=== PATIENT | female | born 1940 | race Caucasian/White ===

== ENCOUNTER 2025-06-12 05:00 | Inpatient (IN) ==
--- NOTE | 2025-06-12 05:34 | Emergency Department Note ---
Impression & Plan Headache, Acute CVA (cerebrovascular accident) ED Provider Note ED Provider Note NAME: MAURISIO DAI AGE:84 SEX: Female : 1940 ARRIVES VIA: Private vehicle INFORMANT: Patient ED PROVIDER(s): Tess Tripp DO CHIEF COMPLAINT: headache HPI: This is an 84-year-old female who presents emergency department due to concern for 5 days of headache. Patient's family members at bedside help with translation as patient is primarily Angolan-speaking. Patient has no history of headaches. No recent trauma or change in activity. No recent change in medications. Patient does take several medications for blood pressure but states she has been checking her blood pressure at home and it has been well- controlled. She is taking her medications as prescribed. She feels she has been staying well-hydrated. She has noted accompanying nausea and blurred vision. No neck or back pain, no paresthesias, no light sensitivity or noise sensitivity. Patient has not noticed any change in her pain with certain positions. She has been using Tylenol and Advil at home with only minimal improvement of her symptoms. She states the pain has been constant and points to the right temporoparietal region of her head. No recent URI symptoms or allergies. She denies any recent fevers or chills. PAST MEDICAL HISTORY:See Below PAST SURGICAL HISTORY:See Below FAMILY HISTORY:See Below SOCIAL HISTORY:See Below HOME MEDICATIONS:See Below ALLERGIES:See Below VITALS:See Below PHYSICAL EXAMINATION: GENERAL: alert, well appearing, well nourished, no distress, non-toxic HEAD: nc/at, pain with palpation along the right temporoparietal region, no palpable mass of the right yarsanism EYE EXAM: normal conjunctiva, PERRL and EOM's grossly intact EARS: TM's clear b/l without erythema or effusion OROPHARYNX: no exudate, no erythema, lips, buccal mucosa, and tongue normal and mucous membranes are moist NECK: supple, no nuchal rigidity, no adenopathy, non-tender, FROM LUNGS: Clear to auscultation. Normal chest wall mechanics, no w/r/r HEART: no murmurs, S1 normal and S2 normal ABDOMEN: abdomen soft, non-tender, normo-active bowel sounds, no masses, no rebound or guarding. BACK: Back is symmetrical on inspection and there is no deformity SKIN: no rashes, petechiae, orbruising UPPER EXTREMITIES: upper extremities are grossly normal. FROM, nml pulses b/l. LOWER EXTREMITIES: No pitting edema. FROM, nml pulses b/l. NEURO EXAM: Normal sensorium, cranial nerves II-XII grossly intact, normal speech, no facial droop,nogross weakness of arms, no gross weakness of legs. Gross sensation intact. No ataxia. Vital Signs: reviewed and remarkable Differential Diagnosis: Differential Diagnosis includes but is not limited to headache, tension headache, cluster headache, migraine, subarachnoid hemorrhage, meningitis, mass, central venous thrombus, concussion, trauma and epidural/subdural hemorrhage. MEDICAL DECISION MAKING: This is an 84 yo female who presents to the ER with concern for 5 days of a headache. No prior history. No recent trauma or illness. She was afebrile and VS stable. No other neuro deficits. Labs drawn and sent, IV established, EKG performed and interpreted at bedside, and patient placed on telemetry. Patient started on IVF and given IV tylenol, IV zofran, and IV magnesium. She was sent for CT/CTA which revealed an occipital lobe stroke. Patient takes 81 mg ASA daily. Patient and family updated on results and need for further evaluation. Case discussed with hospitalist for further evaluation and mgmt. Consultation(s): 0740: Discussed with Dr. Pierce, [facility] hospitalist team, for further evaluation and mgmt. ER Treatment Provided: See below Diagnostics Interpreted By Me: -ECG: Normal sinus at 69, normal axis, normal intervals, no acute ST/T wave changes -Cardiac Monitoring: An order was placed for continuous cardiac monitoring. The monitor shows a rate of 64 with normal sinus rhythm. -Laboratory studies: As stated above and show below. -Imaging studies: CT head: occipital cva, no ICH Triage Nursing Note Reviewed Prior/Outside Records Reviewed Past Med/Surg History Problem List (Updated 06/14/25 @ 02:02 by Tess Tripp DO) Acute CVA (cerebrovascular accident) (Acute) Palpitations Lyme disease Multiple thyroid nodules Occipital stroke Headache (Acute) Medical History (Updated 06/14/25 @ 02:02 by Tess Tripp DO) Atypical chest pain Prediabetes Hyperlipidemia Hypertension Hyperkalemia Surgical History (Updated 06/12/25 @ 08:21 by KIERAN Yanes) History of appendectomy History of hysteroscopy Social History (Updated 06/12/25 @ 10:13 by KIERAN Yanes) Smoking Status: Never smoker Do You Dip or Chew Tobacco: No; Hx Alcohol Use: No Hx Substance Use: No Preferred Language: Angolan Communication Ability: Effective Communication Tools: [employer]isher Required: Yes Beliefs That Will Affect Care: None Current Living Situation: Family Feels Safe at Home: Yes Safety Concerns: Feels Safe At This Time Assistive Devices: Denture - Lower Allergies Allergies Allergy/AdvReac Type Severity Reaction Status Date / Time No Known Allergies Allergy Verified 04/21/23 15:12 Home Meds Home Medications Medication Instructions Recorded Confirmed aspirin 81 mg chewable tablet 81 mg PO DAILY 06/12/25 06/12/25 bisoprolol fumarate 5 mg tablet 5 mg PO DAILY 06/12/25 06/12/25 clonidine HCl 0.2 mg tablet 0.1 mg PO BID 06/12/25 06/12/25 isosorbide mononitrate 30 mg 30 mg PO DAILY 06/12/25 06/12/25 tablet,extended release 24 hr rosuvastatin 10 mg tablet 10 mg PO DAILY 06/12/25 06/12/25 spironolactone 25 mg tablet 25 mg PO DAILY 06/12/25 06/12/25 Results & Data (ED) Vital Signs Vital Signs - 24 hr 06/12/25 05:05 06/12/25 05:39 06/12/25 06:06 Temperature 36.7 C Temperature Source Temporal Artery Scan Pulse Rate 73 67 62 Respiratory Rate 18 18 Respiratory Effort / Characteristics Non-Labored Spontaneous Respiratory Depth Normal Respiratory Pattern Regular Blood Pressure 173/78 H 146/105 H Blood Pressure Mean 109 114 Pulse Oximetry 95 95 Oxygen Delivery Method Room Air Sepsis Recent Fever Within 48 Hours No Sepsis New/Unexplained Change in Mental Status No Sepsis Action Taken by Nursing No Action Required Laboratory Data 06/13/25 07:56 06/13/25 07:56 Lab Results 06/12/25 06/12/25 Range/Units 05:32 05:45 WBC 9.44 (4.8-10.8) K/ul RBC 4.51 (4.20-5.40) M/uL Hgb 14.1 (12.0-16.0) g/dl Hct 39.1 (37.0-47.0) % MCV 86.7 (80.0-100.0) fL MCH 31.3 (25.0-34.0) pg MCHC 36.1 H (32.0-36.0) g/dL RDW Std Deviation 38.1 (36.4-46.3) fL RDW Coeff of Elijah 11.9 (11.5-14.5) % Plt Count 192 (130-400) K/uL MPV 9.4 (9.4-12.4) fL Immature Gran % (Auto) 0.2 % Neut % (Auto) 73.4 % Lymph % (Auto) 19.2 % Grady % (Auto) 6.3 % Eos % (Auto) 0.4 % Baso % (Auto) 0.5 % Neut # (Auto) 6.93 H (1.40-6.50) K/uL Lymph # (Auto) 1.81 (1.20-3.40) K/uL Grady # (Auto) 0.59 (0.11-0.59) K/uL Eos # (Auto) 0.04 (0.00-0.50) K/uL Baso # (Auto) 0.05 (0.00-0.20) K/uL Immature Gran # (Auto) 0.02 (0.01-0.20) K/uL ESR 12 (0-30) mm/hr PT 10.9 (9.0-12.0) Seconds INR 1.0 (0.9-1.1) Sodium 135 L (136-145) mmol/L Potassium 4.6 (3.5-5.1) mmol/L Chloride 103 (98-107) mmol/L Carbon Dioxide 23 (21-32) mmol/L Anion Gap 9 (3-11) BUN 18 (6-23) mg/dl Creatinine 0.85 (0.6-1.2) mg/dl Est Cr Clr Drug Dosing 51.4 ml/min eGFR 68.36 BUN/Creatinine Ratio 21.2 H (10-20) Glucose 149 H (70-99(Fasting)) mg/dl Calcium 9.5 (8.6-10.3) mg/dl Total Bilirubin 1.0 (0.2-1.0) mg/dl AST 15 (13-39) U/L ALT 13 (7-52) U/L Alkaline Phosphatase 66 (34-104) U/L Total Protein 7.3 (6.0-8.3) gm/dl Albumin 4.4 (3.4-5.0) gm/dl Globulin 2.9 (2.5-4.0) gm/dl Albumin/Globulin Ratio 1.5 (0.9-2) TSH 4.577 H (0.300-4.500) uIu/ml Free T4 0.82 (0.61-1.60) ng/dl Anaplasma Smear See Comment Babesia Smear See Comment Lyme Disease Screen Positive H (Negative) Lyme Tier 2 IgG Confirm Positive H (Negative) Lyme Tier 2 IgM Confirm Positive H (Negative) Administered Medications Aspirin (Aspirin 81 Mg Chew) 81 mg PO DAILY [facility] Stop: 07/13/25 08:59 Last Admin: 06/13/25 09:28 Dose: 81 mg Documented By: ASHWIN Clopidogrel Bisulfate (Clopidogrel Bisulfate 75 Mg Tab) 75 mg PO QAM TASH Stop: 07/13/25 08:59 Last Admin: 06/13/25 09:28 Dose: 75 mg Documented By: ASHWIN Acetaminophen (Ofirmev) 1,000 mg in 100 mls @ 400 mls/hr IV Q8H PRN PRN Reason: Headache or Pain Stop: 06/15/25 16:49 Last Infusion: 06/13/25 12:45 Dose: Infused Documented By: Admin: 06/13/25 12:22 Dose: 400 mls/hr Documented By: ASHWIN Ceftriaxone Sodium (Rocephin) 2,000 mg in 50 mls @ 100 mls/hr IV Q24H [facility] Stop: 06/23/25 16:59 Last Infusion: 06/13/25 17:51 Dose: Infused Documented By: Admin: 06/13/25 17:19 Dose: 100 mls/hr Documented By: ASHWIN Lactobacillus Acidophilus (Advanced Probiotic 625 Mg Capsule) 1,250 mg PO DAILY [facility] Stop: 07/13/25 08:59 Last Admin: 06/13/25 12:21 Dose: 1,250 mg Documented By: ASHWIN Rosuvastatin Calcium (Rosuvastatin Calcium 10 Mg Tab) 10 mg PO DAILY [facility] Stop: 07/13/25 08:59 Last Admin: 06/13/25 09:28 Dose: 10 mg Documented By: ASHWIN Discontinued Medications Aspirin (Aspirin 81 Mg Ectab) 81 mg PO NOW STA Stop: 06/12/25 16:47 Last Admin: 06/12/25 17:58 Dose: 81 mg Documented By: ASHWIN Clopidogrel Bisulfate (Clopidogrel Bisulfate 75 Mg Tab) 75 mg PO NOW ONE Stop: 06/12/25 07:41 Last Admin: 06/12/25 10:50 Dose: Not Given Documented By: JE Clopidogrel Bisulfate (Clopidogrel Bisulfate 300 Mg Tab) 300 mg PO NOW STA Stop: 06/12/25 16:48 Last Admin: 06/12/25 17:58 Dose: 300 mg Documented By: ASHWIN Gadobutrol (Gadobutrol 65ml Vial) 8 ml IV ONCE ONE Stop: 06/13/25 15:39 Last Admin: 06/13/25 15:38 Dose: 8 ml Documented By: MCKENZIE Sodium Chloride (Nss) 1,000 mls @ 125 mls/hr IV .Q8H TASH Stop: 06/15/25 05:29 Last Admin: 06/13/25 09:28 Dose: Not Given Documented By: Infusion: 06/13/25 09:27 Dose: Infused Documented By: Admin: 06/13/25 00:58 Dose: 125 mls/hr Documented By: Infusion: 06/12/25 23:07 Dose: Infused Documented By: Admin: 06/12/25 15:07 Dose: 125 mls/hr Documented By: Infusion: 06/12/25 12:52 Dose: Infused Documented By: Admin: 06/12/25 05:51 Dose: 125 mls/hr Documented By: SHAWN Acetaminophen (Ofirmev) 1,000 mg in 100 mls @ 400 mls/hr IV NOW STA Stop: 06/12/25 05:39 Last Infusion: 06/12/25 06:23 Dose: Infused Documented By: Admin: 06/12/25 05:51 Dose: 400 mls/hr Documented By: SHAWN Magnesium Sulfate/Dextrose (Magnesium Sulfate / D5w) 1 gm in 100 mls @ 100 mls/hr IV NOW STA Stop: 06/12/25 06:25 Last Infusion: 06/12/25 07:25 Dose: Infused Documented By: Admin: 06/12/25 05:51 Dose: 100 mls/hr Documented By: SHAWN Ceftriaxone Sodium (Rocephin) 2,000 mg in 50 mls @ 100 mls/hr IV NOW STA Stop: 06/12/25 17:15 Last Infusion: 06/12/25 18:46 Dose: Infused Documented By: Admin: 06/12/25 17:58 Dose: 100 mls/hr Documented By: ASHWIN Ioversol (Optiray 320 125ml) 120 ml IV ONCE ONE Stop: 06/12/25 06:38 Last Admin: 06/12/25 06:37 Dose: 120 ml Documented By: DARSHAN Ondansetron HCl (Ondansetron Inj 2 Mg/Ml 2 Ml Vial) 4 mg IV NOW STA Stop: 06/12/25 05:26 Last Admin: 06/12/25 05:51 Dose: 4 mg Documented By: SHAWN Imaging Data Radiologist's Impression: Head CT 06/12/25 05:25 EXAM: CT head/brain wo con CLINICAL HISTORY: headache TECHNIQUE: Multiple axial images are obtained from the skull base to the vertex without contrast. CT scan was performed according to ALARA (as low as reasonable achievable). COMPARISON: none FINDINGS: Ill defined area of hypodensity in right occipital lobe- could be acute to sub acute infarct in right posterior cerebral artery territory. There is cerebral atrophy. No evidence of space occupying lesion, hemorrhage, edema, mass effect, midline shift, extra axial collection, or hydrocephalus is noted. Basal cisterns are symmetric and normal in size and configuration. There are scattered periventricular hypodensities as can be seen with chronic microvascular ischemic changes. Rest of the coles-white matter differentiation is preserved. Visualized paranasal sinuses and mastoid air cells are well aerated. Orbital contents are within normal limits. Bony structures are intact. IMPRESSION: 1. Ill defined area of hypodensity in right occipital lobe- could be acute to sub acute infarct in right posterior cerebral artery territory. 2. Chronic microvascular ischemic changes. 3. Cerebral atrophy. Adviced MRI brain with contrast for further evaluation to rule out possible underlying space occupying lesions Electronically signed by Max Salazar 06-12-2025 07:14 AM Head CTA 06/12/25 05:25 EXAM: CT angio head w con CLINICAL HISTORY: right BRYSON, vision changes TECHNIQUE: Contrast enhanced thin slice CT angiography scan of the cerebral vessels was performed with intravenous contrast. Contiguous axial images were obtained. Reformatted coronal and sagittal images were also reviewed. If IV contrast material had not been administered, the likelihood of detecting abnormalities relevant to the patient's condition would have been substantially decreased. CT scan was performed according to ALARA (as low as reasonably achievable). COMPARISON: None FINDINGS: Bilateral internal carotid arteries show normal course, caliber and opacification in the canalicular and cavernous part. Their division into the anterior cerebral artery and middle cerebral artery is defined. A1, A2 and M1, M2 segments are normal on both the sides. Bilateral vertebral arteries are seen to unite the form the basilar artery in a normal fashion. Basilar artery shows normal course, caliber and opacification. Its division into the posterior cerebral arteries is defined. Bilateral P1 and P2 segments are normal. Visualized venous structures show normal opacification. No evidence of intracranial aneurysm or AV malformation is seen. IMPRESSION: 1. No evidence of stenosis or aneurysm. No evidence of dissection. Electronically signed by Max Salazar 06-12-2025 07:19 AM Neck CTA 06/12/25 05:25 EXAM: CT angio neck with con CLINICAL HISTORY: right BRYSON, vision changes TECHNIQUE: Contrast enhanced thin slice CT angiography scan of the carotid vessels was performed with intravenous contrast. Contiguous axial images were obtained. Reformatted coronal and sagittal images were also reviewed. If IV contrast material had not been administered, the likelihood of detecting abnormalities relevant to the patient's condition would have been substantially decreased. CT scan was performed according to ALARA (as low as reasonably achievable). COMPARISON: None FINDINGS: Mild, multifocal atherosclerotic calcifications are seen in arch of aorta, bilateral carotid bulbs and clinoid - supraclinoid segments of bilateral internal carotid arteries without causing significant flow limiting stenosis. Common origin of brachiocephalic artery and left common carotid artery - Bovine arch is seen (normal variant). Bilateral vertebral arteries are well opacified. Bilateral jugular veins are well opacified. Included great vessels of the aortic arch are grossly unremarkable. Included lung apices are grossly unremarkable. A few small hypodense nodules are seen in both the lobes of thyroid. Further evaluation with high frequency ultrasound of thyroid suggested. IMPRESSION: 1. No evidence of stenosis or aneurysm. No evidence of dissection. 2. Mild, multifocal atherosclerotic calcifications are seen in arch of aorta, bilateral carotid bulbs and clinoid - supraclinoid segments of bilateral internal carotid arteries without causing significant flow limiting stenosis. 3. A few small hypodense nodules are seen in both the lobes of thyroid. Further evaluation with high frequency ultrasound of thyroid suggested. Electronically signed by Max Salazar 06-12-2025 07:17 AM Discharge Plan Visit Data Chief Complaint: Headache Stated Complaint: BAD HEADACHE ED Provider: Tess Tripp Discharge Problem: Headache, Acute CVA (cerebrovascular accident) Patient Disposition: Admitted As Inpatient Condition: Fair Discharge Instructions Interventions: ED Discharge Assessment Last Done: 06/12/25 16:42
[2025-06-12] MEDS: SODIUM CHLORIDE 0.9% 1,000 ML IV SCH (05:51)
[2025-06-12] MEDS: ONDANSETRON INJ 2 MG/ML 2 ML VIAL IV STA (05:51)
[2025-06-12] MEDS: ACETAMINOPHEN 1,000 MG/100 ML VIAL IV STA (05:51)
[2025-06-12] MEDS: MAGNESIUM SULFATE / D5W 1 GM/100 ML BAG IV STA (05:51)
[2025-06-12 06:04] LABS: Hematocrit (blood only) 39.1 % (37.0-47.0); Hemoglobin 14.1 g/dl (12.0-16.0); Immature Granulocytes # (auto) 0.02 K/uL (0.01-0.20); Immature Granulocytes % (auto) 0.2 %; Mean Corpuscular Hemoglobin 31.3 pg (25.0-34.0); Mean Corpuscular Volume 86.7 fL (80.0-100.0); Platelet Count 192 K/uL (130-400); RDW Standard Deviation 38.1 fL (36.4-46.3); Red Blood Count 4.51 M/uL (4.20-5.40); White Blood Count 9.44 K/ul (4.8-10.8)
[2025-06-12 06:24] LABS: Alanine Aminotransferase 13.0 U/L (7-52); Albumin Globulin Ratio 1.5 (0.9-2); Alkaline Phosphatase 66.0 U/L (34-104); Anion Gap 9.0 (3-11); Bilirubin,Total 1.0 mg/dl (0.2-1.0); Blood Urea Nitrogen 18.0 mg/dl (6-23); Calcium 9.5 mg/dl (8.6-10.3); Carbon Dioxide 23.0 mmol/L (21-32); Chloride 103.0 mmol/L (98-107); Creatinine Clr Calc Pharmacy 51.4 ml/min; Globulin 2.9 gm/dl (2.5-4.0); Glucose 149.0 mg/dl (70-99(Fasting)); Potassium 4.6 mmol/L (3.5-5.1); Sodium 135.0 mmol/L (136-145); Total Protein 7.3 gm/dl (6.0-8.3)
[2025-06-12 06:33] LABS: INR 1.0 (0.9-1.1); Prothrombin Time 10.9 Seconds (9.0-12.0)
[2025-06-12] MEDS: OPTIRAY 320 125ml IV ONE (06:37)
[2025-06-12 06:38] LABS: Thyroid Stimulating Hormone 4.577 uIu/ml (0.300-4.500)
[2025-06-12 07:03] LABS: Lyme Screen Rflx Confirmation Positive (Negative)
--- NOTE | 2025-06-12 07:14 | CT Scan Report ---
EXAM: CT head/brain wo con CLINICAL HISTORY: headache TECHNIQUE: Multiple axial images are obtained from the skull base to the vertex without contrast. CT scan was performed according to ALARA (as low as reasonable achievable). COMPARISON: none FINDINGS: Ill defined area of hypodensity in right occipital lobe- could be acute to sub acute infarct in right posterior cerebral artery territory. There is cerebral atrophy. No evidence of space occupying lesion, hemorrhage, edema, mass effect, midline shift, extra axial collection, or hydrocephalus is noted. Basal cisterns are symmetric and normal in size and configuration. There are scattered periventricular hypodensities as can be seen with chronic microvascular ischemic changes. Rest of the coles-white matter differentiation is preserved. Visualized paranasal sinuses and mastoid air cells are well aerated. Orbital contents are within normal limits. Bony structures are intact. IMPRESSION: 1. Ill defined area of hypodensity in right occipital lobe- could be acute to sub acute infarct in right posterior cerebral artery territory. 2. Chronic microvascular ischemic changes. 3. Cerebral atrophy. Adviced MRI brain with contrast for further evaluation to rule out possible underlying space occupying lesions Electronically signed by Max Salazar 06-12-2025 07:14 AM
--- NOTE | 2025-06-12 07:18 | CT Scan Report ---
EXAM: CT angio neck with con CLINICAL HISTORY: right BRYSON, vision changes TECHNIQUE: Contrast enhanced thin slice CT angiography scan of the carotid vessels was performed with intravenous contrast. Contiguous axial images were obtained. Reformatted coronal and sagittal images were also reviewed. If IV contrast material had not been administered, the likelihood of detecting abnormalities relevant to the patient's condition would have been substantially decreased. CT scan was performed according to ALARA (as low as reasonably achievable). COMPARISON: None FINDINGS: Mild, multifocal atherosclerotic calcifications are seen in arch of aorta, bilateral carotid bulbs and clinoid - supraclinoid segments of bilateral internal carotid arteries without causing significant flow limiting stenosis. Common origin of brachiocephalic artery and left common carotid artery - Bovine arch is seen (normal variant). Bilateral vertebral arteries are well opacified. Bilateral jugular veins are well opacified. Included great vessels of the aortic arch are grossly unremarkable. Included lung apices are grossly unremarkable. A few small hypodense nodules are seen in both the lobes of thyroid. Further evaluation with high frequency ultrasound of thyroid suggested. IMPRESSION: 1. No evidence of stenosis or aneurysm. No evidence of dissection. 2. Mild, multifocal atherosclerotic calcifications are seen in arch of aorta, bilateral carotid bulbs and clinoid - supraclinoid segments of bilateral internal carotid arteries without causing significant flow limiting stenosis. 3. A few small hypodense nodules are seen in both the lobes of thyroid. Further evaluation with high frequency ultrasound of thyroid suggested. Electronically signed by Max Salazar 06-12-2025 07:17 AM
--- NOTE | 2025-06-12 07:19 | CT Scan Report ---
EXAM: CT angio head w con CLINICAL HISTORY: right BRYSON, vision changes TECHNIQUE: Contrast enhanced thin slice CT angiography scan of the cerebral vessels was performed with intravenous contrast. Contiguous axial images were obtained. Reformatted coronal and sagittal images were also reviewed. If IV contrast material had not been administered, the likelihood of detecting abnormalities relevant to the patient's condition would have been substantially decreased. CT scan was performed according to ALARA (as low as reasonably achievable). COMPARISON: None FINDINGS: Bilateral internal carotid arteries show normal course, caliber and opacification in the canalicular and cavernous part. Their division into the anterior cerebral artery and middle cerebral artery is defined. A1, A2 and M1, M2 segments are normal on both the sides. Bilateral vertebral arteries are seen to unite the form the basilar artery in a normal fashion. Basilar artery shows normal course, caliber and opacification. Its division into the posterior cerebral arteries is defined. Bilateral P1 and P2 segments are normal. Visualized venous structures show normal opacification. No evidence of intracranial aneurysm or AV malformation is seen. IMPRESSION: 1. No evidence of stenosis or aneurysm. No evidence of dissection. Electronically signed by Max Salazar 06-12-2025 07:19 AM
--- NOTE | 2025-06-12 08:22 | Electrocardiogram Report ---
Test Reason : Blood Pressure : */* mmHG Vent. Rate : 69 BPM Atrial Rate : 69 BPM P-R Int : 176 ms QRS Dur : 72 ms QT Int : 400 ms P-R-T Axes : 90 5 39 degrees QTcB Int : 428 ms Sinus rhythm with Premature atrial complexes Otherwise normal ECG When compared with ECG of 21-Apr-2023 13:07, Premature atrial complexes are now Present Confirmed by Tanner Cabral ([id number]) on 06/12/2025 8:21:45 AM Referred By: Confirmed By: Tanner Cabral
--- NOTE | 2025-06-12 08:28 | History & Physical Report ---
Date of Service June 12, 2025 Assessment & Plan (1) Occipital stroke: (2) Palpitations: (3) Lyme disease: (4) Multiple thyroid nodules: (5) Hypertension: (6) Hyperlipidemia: Plan 84 year old female with PMH significant for prediabetes, hyperlipidemia, hypertension, and palpitations who presented to the ED on 06/12/2025 with headache and blurry vision x4 days and is admitted for occipital stroke. Occipital stroke Patient presented with severe headache and blurry vision x4 days Head CT revealed ill defined area of hypodensity in right occipital lobe - could be acute to subacute infarct in right posterior cerebral artery Head CTA with no stenosis, aneurysm, or dissection Neck CTA with no stenosis, aneurysm, or dissection; mild atherosclerotic calcifications in arch of aorta, bilateral carotid bulbs and internal carotid arteries Brain MRI confirmed right occipital infarct measuring 4.6cm without hemorrhage, midline shift, hydrocephalus Plan: -Neuro checks q4hr -Echo ordered -PT/OT/ST consults -A1C and lipid panel in am -Neurology consulted and recommended DAPT and ziopatch -Plavix 300mg x1, continue 75mg daily -Continue home baby aspirin Lyme disease Lyme screen, IgM and IgG all positive Patient denies known tick bite/rash or constitutional symptoms Labs unremarkable with no leukocytosis/penia or transaminitis 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 given severe headache on presentation *LP deferred at this time by recommendation of Neurology given need for DAPT for stroke 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 Can consider ID consult Palpitations Patient notes history of intermittent palpitations previously evaluated by Cardiology Admitting EKG revealed PACs Cardiology previously recommended Zio monitor but patient declines Recommend Ziopatch at dc for stroke as well as PACs Thyroid nodules Neck CTA revealed few nodules in both lobes of thyroid Thyroid US ordered Discussed with patient about possibility for biopsy depending on US findings which can be done outpatient Hypertension Hold bisoprolol, clonidine, imdur, spironolactone for permissive hypertension Hyperlipidemia Continue rosuvastatin DVT Prophylaxis: SQ Heparin Code Status: FULL CODE - As per discussion at bedside with the patient. PCP: Chanelle Can Disposition: admit to [facility] Patient seen in collaboration with Dr Pierce. Please see addendum. I spent a total of 70 minutes coordinating, documenting and providing care for this patient excluding time spent in the performance of separately billed services or time spent by another provider/QHP. Admission and Anticipated Discharge Date Admission Date: 06/12/2025 History of Present Illness Chief Complaint: headache and blurry vision Primary Care Provider: Chanelle Can MD 84 year old female with PMH significant for prediabetes, hyperlipidemia, hypertension, and palpitations who presented to the ED on 06/12/2025 with headache and blurry vision x4 days. History obtained with the help of patient's granddaughter, as patient only speaks [place]. She reports a severe headache that started on Sunday and has been constant since then with no relief from Tylenol or Advil. She reports associated blurry vision that waxes and wanes in severity. She also has unsteady gait and nausea attributed to the blurry vision. Denies any falls. She reports a history of lyme disease where she had ticks on her approximately 2 years ago and completed treatment. Denies any recent known ticks. Denies any fevers, chills, fatigue, malaise, chest pain, SOB, abdominal pain, vomiting, dysuria, constipation, diarrhea, rashes, weakness on one side of the body, difficulty with speech. Notes palpitations that are not new and she has discussed with Cardiology in the past. Allergies Allergy/AdvReac Type Severity Reaction Status Date / Time No Known Allergies Allergy Verified 04/21/23 15:12 Home Medications Medication Instructions Recorded Confirmed Type aspirin 81 mg chewable tablet 81 mg PO DAILY 06/12/25 06/12/25 History bisoprolol fumarate 5 mg tablet 5 mg PO DAILY 06/12/25 06/12/25 History clonidine HCl 0.2 mg tablet 0.1 mg PO BID 06/12/25 06/12/25 History isosorbide mononitrate 30 mg 30 mg PO DAILY 06/12/25 06/12/25 History tablet,extended release 24 hr rosuvastatin 10 mg tablet 10 mg PO DAILY 06/12/25 06/12/25 History spironolactone 25 mg tablet 25 mg PO DAILY 06/12/25 06/12/25 History Past Med/Surg History Problem List (Updated 06/14/25 @ 02:02 by Tess Tripp DO) Acute CVA (cerebrovascular accident) (Acute) Palpitations Lyme disease Multiple thyroid nodules Occipital stroke Headache (Acute) Medical History (Updated 06/14/25 @ 02:02 by Tess S. Pheasant, DO) Atypical chest pain Prediabetes Hyperlipidemia Hypertension Hyperkalemia Surgical History (Updated 06/12/25 @ 08:21 by KIERAN Yanes) History of appendectomy History of hysteroscopy Social History (Updated 06/12/25 @ 10:13 by KIERAN Yanes) Smoking Status: Never smoker Do You Dip or Chew Tobacco: No; Hx Alcohol Use: No Hx Substance Use: No Preferred Language: Citizen [place] Communication Ability: Effective Communication Tools: IPad and Other Hair Dryer Required: Yes Beliefs That Will Affect Care: None Current Living Situation: Family Feels Safe at Home: Yes Safety Concerns: Feels Safe At This Time Assistive Devices: Denture - Lower Review of Systems Review of Systems: All systems reviewed & are unremarkable except as noted in HPI & below Physical Exam Physical Exam: General/Psych: WD/WN, sitting up in bed, NAD, conversing easily Head: normocephalic, atraumatic, no facial droop Eyes: normal inspection, PERRL, conjunctivae pink ENT: external ear and nose normal, oropharynx normal Neck: normal visual inspection, trachea midline Respiratory: normal respiratory effort, lungs clear to auscultation, no wheeze/rales/rhonchi, no accessory muscle use Cardiovascular: regular rate and rhythm, no murmur/rub/gallop, no JVD Extremities: no cyanosis or clubbing, normal peripheral pulses, no BLE edema Abdomen/GI: normal bowel sounds, soft, nontender Neurologic/MSK: A+Ox3, CN's II-XI intact bilaterally, motor strength 5/5, moves all extremities, negative Kernig's and Brudzinski's Skin: no rashes, normal color, warm and dry Results & Data Results & Data Vital Signs (Past 12 Hours) Vital Signs Temp Pulse Pulse Resp BP BP Pulse Ox 06/12/25 08:08 59 L 16 147/102 H 95 06/12/25 06:06 62 18 146/105 H 95 06/12/25 05:39 67 06/12/25 05:05 36.7 C 73 18 173/78 H 95 O2 Del Method 06/12/25 08:08 Room Air 06/12/25 06:06 06/12/25 05:39 06/12/25 05:05 Room Air Laboratory Results Short CBC 06/12/25 Range/Units 05:32 WBC 9.44 (4.8-10.8) K/ul Hgb 14.1 (12.0-16.0) g/dl Hct 39.1 (37.0-47.0) % Plt Count 192 (130-400) K/uL BMP 06/12/25 05:45 Sodium 135 L Potassium 4.6 Chloride 103 Carbon Dioxide 23 BUN 18 Creatinine 0.85 Glucose 149 H Calcium 9.5 Liver Function 06/12/25 Range/Units 05:45 Total Bilirubin 1.0 (0.2-1.0) mg/dl AST 15 (13-39) U/L ALT 13 (7-52) U/L Alkaline Phosphatase 66 (34-104) U/L Albumin 4.4 (3.4-5.0) gm/dl I have independently reviewed and interpreted patient's admitting labs including CBC, CMP, PT/INR, lyme screen Diagnostic Findings Head CT 06/12/25 05:25 EXAM: CT head/brain wo con CLINICAL HISTORY: headache TECHNIQUE: Multiple axial images are obtained from the skull base to the vertex without contrast. CT scan was performed according to ALARA (as low as reasonable achievable). COMPARISON: none FINDINGS: Ill defined area of hypodensity in right occipital lobe- could be acute to sub acute infarct in right posterior cerebral artery territory. There is cerebral atrophy. No evidence of space occupying lesion, hemorrhage, edema, mass effect, midline shift, extra axial collection, or hydrocephalus is noted. Basal cisterns are symmetric and normal in size and configuration. There are scattered periventricular hypodensities as can be seen with chronic microvascular ischemic changes. Rest of the coles-white matter differentiation is preserved. Visualized paranasal sinuses and mastoid air cells are well aerated. Orbital contents are within normal limits. Bony structures are intact. IMPRESSION: 1. Ill defined area of hypodensity in right occipital lobe- could be acute to sub acute infarct in right posterior cerebral artery territory. 2. Chronic microvascular ischemic changes. 3. Cerebral atrophy. Adviced MRI brain with contrast for further evaluation to rule out possible underlying space occupying lesions Electronically signed by Max Salazar 06-12-2025 07:14 AM Head CTA 06/12/25 05:25 EXAM: CT angio head w con CLINICAL HISTORY: right BRYSON, vision changes TECHNIQUE: Contrast enhanced thin slice CT angiography scan of the cerebral vessels was performed with intravenous contrast. Contiguous axial images were obtained. Reformatted coronal and sagittal images were also reviewed. If IV contrast material had not been administered, the likelihood of detecting abnormalities relevant to the patient's condition would have been substantially decreased. CT scan was performed according to ALARA (as low as reasonably achievable). COMPARISON: None FINDINGS: Bilateral internal carotid arteries show normal course, caliber and opacification in the canalicular and cavernous part. Their division into the anterior cerebral artery and middle cerebral artery is defined. A1, A2 and M1, M2 segments are normal on both the sides. Bilateral vertebral arteries are seen to unite the form the basilar artery in a normal fashion. Basilar artery shows normal course, caliber and opacification. Its division into the posterior cerebral arteries is defined. Bilateral P1 and P2 segments are normal. Visualized venous structures show normal opacification. No evidence of intracranial aneurysm or AV malformation is seen. IMPRESSION: 1. No evidence of stenosis or aneurysm. No evidence of dissection. Electronically signed by Max Salazar 06-12-2025 07:19 AM Neck CTA 06/12/25 05:25 EXAM: CT angio neck with con CLINICAL HISTORY: right BRYSON, vision changes TECHNIQUE: Contrast enhanced thin slice CT angiography scan of the carotid vessels was performed with intravenous contrast. Contiguous axial images were obtained. Reformatted coronal and sagittal images were also reviewed. If IV contrast material had not been administered, the likelihood of detecting abnormalities relevant to the patient's condition would have been substantially decreased. CT scan was performed according to ALARA (as low as reasonably achievable). COMPARISON: None FINDINGS: Mild, multifocal atherosclerotic calcifications are seen in arch of aorta, bilateral carotid bulbs and clinoid - supraclinoid segments of bilateral internal carotid arteries without causing significant flow limiting stenosis. Common origin of brachiocephalic artery and left common carotid artery - Bovine arch is seen (normal variant). Bilateral vertebral arteries are well opacified. Bilateral jugular veins are well opacified. Included great vessels of the aortic arch are grossly unremarkable. Included lung apices are grossly unremarkable. A few small hypodense nodules are seen in both the lobes of thyroid. Further evaluation with high frequency ultrasound of thyroid suggested. IMPRESSION: 1. No evidence of stenosis or aneurysm. No evidence of dissection. 2. Mild, multifocal atherosclerotic calcifications are seen in arch of aorta, bilateral carotid bulbs and clinoid - supraclinoid segments of bilateral internal carotid arteries without causing significant flow limiting stenosis. 3. A few small hypodense nodules are seen in both the lobes of thyroid. Further evaluation with high frequency ultrasound of thyroid suggested. Electronically signed by Max Salazar 06-12-2025 07:17 AM Brain MRI 06/12/25 09:53 MR brain wo con HISTORY: 84 years-old Female rule out stroke acute stroke like symptoms COMPARISON: Head CT of same day TECHNIQUE: Multiplanar multisequence MRI of the brain was obtained without IV contrast FINDINGS: 4.6 x 2.4 x 3.1 cm focus of increased diffusion-weighted signal within the right occipital lobe, image 10 series 3 demonstrates intermediate signal on the ADC map and increased T2/STIR signal cortical thickening. This correlate with area of decreased attenuation on the recent head CT. Midline structures appear unremarkable. Degenerative changes of the cervical spine. No acute intracranial hemorrhage, midline shift, abnormal extra-axial collection or hydrocephalus. No pathologic Blooming artifact. Mild involutional changes with minimal T2/FLAIR hyperintense foci throughout the white matter likely representing a degree of chronic microvascular ischemic disease. Cerebral venous sinuses and major arterial flow voids appear patent. Trace right mastoid effusion. Mild mucosal thickening of the paranasal sinuses. Partially calcified scalp lesions are likely benign. IMPRESSION: 1. Confirmation of the acute to subacute appearing right occipital infarct measuring 4.6 cm. 2. No acute intracranial hemorrhage, midline shift or hydrocephalus. ACT 112: Negative or not required by law. The above report was generated using voice recognition software. It may contain grammatical, syntax or spelling errors. Electronically signed by: Blue Rothman M.D. 06/12/2025 10:53 AM ECG Additional Comments: I have independently reviewed and interpreted patient's admitting EKG which revealed: NSR with PACs at a rate of 69bpm Code Status & VTE Plan Code Status Full Code Supervising Physician Co-Signing Physician Notes Attending Addendum: Case reviewed with the advanced practitioner. I have personally performed a history and physical examination on the patient. I have reviewed the advanced practitioner's documentation on the date of service referenced in note, and I agree with, and take responsibility for the plan of care. please refer to her notes for full details patient seen and examined, records reviewed by myself as well all labs, imaging noted and reviewed ASSESSMENT AND PLAN other diagnoses and plan of care as per advanced practitioner's notes I spent a total of 55 minutes coordinating, documenting, and providing care for this patient, excluding time spent in the performance of separately billed services or time spent by another provider/QHP. Jason Pierce MD
[2025-06-12 09:42] LABS: Lyme Ab IgG 2nd Tier Confirm Positive (Negative); Lyme Ab IgM 2nd Tier Confirm Positive (Negative)
[2025-06-12] MEDS: CLOPIDOGREL BISULFATE 75 MG TAB PO ONE (10:50)
--- NOTE | 2025-06-12 10:55 | Magnetic Resonance Report ---
MR brain wo con HISTORY: 84 years-old Female rule out stroke acute stroke like symptoms COMPARISON: Head CT of same day TECHNIQUE: Multiplanar multisequence MRI of the brain was obtained without IV contrast FINDINGS: 4.6 x 2.4 x 3.1 cm focus of increased diffusion-weighted signal within the right occipital lobe, imag e 10 series 3 demonstrates intermediate signal on the ADC map and increased T2/STIR signal cortical t hickening. This correlate with area of decreased attenuation on the recent head CT. Midline structure s appear unremarkable. Degenerative changes of the cervical spine. No acute intracranial hemorrhage, midline shift, abnormal extra-axial collection or hydrocephalus. No pathologic Blooming artifact. Mil d involutional changes with minimal T2/FLAIR hyperintense foci throughout the white matter likely rep resenting a degree of chronic microvascular ischemic disease. Cerebral venous sinuses and major arterial flow voids appear patent. Trace right mastoid effusion. Mi ld mucosal thickening of the paranasal sinuses. Partially calcified scalp lesions are likely benign. IMPRESSION: 1. Confirmation of the acute to subacute appearing right occipital infarct measuring 4.6 cm. 2. No acute intracranial hemorrhage, midline shift or hydrocephalus. ACT 112: Negative or not required by law. The above report was generated using voice recognition software. It may contain grammatical, syntax o r spelling errors. Electronically signed by: Blue Rothman M.D. 06/12/2025 10:53 AM
[2025-06-12] MEDS ORDERED: ONDANSETRON INJ 2 MG/ML 2 ML VIAL IV PRN (16:50)
[2025-06-12] MEDS ORDERED: PHARMACIST DISCHARGE MED REC CONSULT PRN (16:50)
[2025-06-12] MEDS: CLOPIDOGREL BISULFATE 300 MG TAB PO STA (17:58)
[2025-06-12] MEDS: ASPIRIN 81 MG ECTAB PO STA (17:58)
[2025-06-12] MEDS: cefTRIAXone SODIUM 2,000 MG/50 ML BAG IV STA (17:58)
--- NOTE | 2025-06-12 21:36 | Ultrasound Report ---
Exam(s): US THYROID EXAM: US Soft Tissues Head and Neck, Thyroid CLINICAL HISTORY: Reason for exam: eval thyroid nodules. TECHNIQUE: Real-time ultrasound scan of the thyroid gland and soft tissues of the neck with image documentation. COMPARISON: No relevant prior studies available. FINDINGS: Left thyroid lobe: Left thyroid lobe measures 3.8 x 0.8 x 1.0 cm. No enlarged or calcified nodules. Right thyroid lobe: Right thyroid lobe measures 3.8 x 1.3 x 1.4 cm. Mid right thyroid nodule measuring 1.2 x 1.0 x 0.9 cm. This nodule is solid, isoechoic, wider than tall, has ill-defined margins, and no echogenic foci. Lower pole right thyroid nodule measuring 1.1 x 1.1 x 0.9 cm. This nodule is solid, isoechoic, wider than tall, has smooth margins, and no echogenic foci. Isthmus: Thyroid isthmus measures 0.2 cm. No enlarged or calcified nodules. Lymph nodes: Unremarkable. No lymphadenopathy. IMPRESSION: 1. Mid right thyroid nodule measuring 1.2 x 1.0 x 0.9 cm. This nodule is solid, isoechoic, wider than tall, has ill-defined margins, and no echogenic foci. TI-RADS points: 3. TI-RADS category: TR3. This nodule is mildly suspicious but no FNA or follow-up is necessary given the small size of this nodule. 2. Lower pole right thyroid nodule measuring 1.1 x 1.1 x 0.9 cm. This nodule is solid, isoechoic, wider than tall, has smooth margins, and no echogenic foci. TI-RADS points: 3. TI-RADS category: TR3. This nodule is mildly suspicious but no FNA or follow-up is necessary given the small size of this nodule. Electronically signed by: Froylan Mckeon M.D. 06/12/25 21:34 PM
[2025-06-13 08:44] LABS: Hematocrit (blood only) 36.9 % (37.0-47.0); Hemoglobin 12.8 g/dl (12.0-16.0); Mean Corpuscular Hemoglobin 30.8 pg (25.0-34.0); Mean Corpuscular Volume 88.7 fL (80.0-100.0); Platelet Count 185 K/uL (130-400); RDW Standard Deviation 39.4 fL (36.4-46.3); Red Blood Count 4.16 M/uL (4.20-5.40); White Blood Count 5.72 K/ul (4.8-10.8)
[2025-06-13 08:45] LABS: Immature Granulocytes # (auto) 0.03 K/uL (0.01-0.20); Immature Granulocytes % (auto) 0.5 %
[2025-06-13 09:05] LABS: Anion Gap 7.0 (3-11); Blood Urea Nitrogen 12.0 mg/dl (6-23); Calcium 8.5 mg/dl (8.6-10.3); Carbon Dioxide 24.0 mmol/L (21-32); Chloride 108.0 mmol/L (98-107); Cholesterol 201.0 mg/dl (0-200); Creatinine Clr Calc Pharmacy 66.3 ml/min; Glucose 102.0 mg/dl (70-99(Fasting)); HDL Cholesterol 42.0 mg/dl; Potassium 4.4 mmol/L (3.5-5.1); Sodium 139.0 mmol/L (136-145); Triglycerides 77.0 mg/dl (0-150)
[2025-06-13 09:14] LABS: Hemoglobin A1C 6.8 % (4.5-5.6)
[2025-06-13] MEDS: ROSUVASTATIN CALCIUM 10 MG TAB PO SCH (09:28)
[2025-06-13] MEDS: ASPIRIN 81 MG CHEW PO SCH (09:28)
[2025-06-13] MEDS: CLOPIDOGREL BISULFATE 75 MG TAB PO SCH (09:28)
[2025-06-13] MEDS: ADVANCED PROBIOTIC 625 MG CAPSULE PO SCH (12:21)
[2025-06-13] MEDS: ACETAMINOPHEN 1,000 MG/100 ML VIAL IV PRN (12:22)
[2025-06-13] MEDS ORDERED: ACETAMINOPHEN 500 MG TAB PO PRN (12:25)
--- NOTE | 2025-06-13 13:44 | Neurology Consultation ---
Date of Consultation June 13, 2025 Assessment & Plan (1) Occipital stroke: Right occipital stroke with left sided visual field cut and headaches Lyme disease without any evidence of MEDICAL RECORDS MANAGER infection as headaches could be atributed to stroke. Plan Continue Aspirin 81mg andPplavix 75mg , Atorvastatin 80mg Follow echocardiogram Ziopatch upon discharge treat lyme disease, low suspicion for MEDICAL RECORDS MANAGER lyme Telehealth Consultation Telehealth Information Telehealth Information: I performed this visit using a real-time telehealth connection between my location and the patients location ([facility]). After connecting through interactive tele-video, patient was identified by name and date of and/or wristband check.Patient (or authorized healthcare field representative/health education) was informed that this was a telemedicine visit and it was being conducted confidentially over secure lines. My office door was closed and no one else was present in the room with me.Patient (or authorized healthcare field representative/health education) provided consent to proceed with the visit, expressed an understanding of privacy and security of the telemedicine visit, and gave permi ssion to have a hospital field representative/health education in the room in order to assist with the visit and to conduct portions of the visit, as needed. I informed the patient (or authorized healthcare field representative/health education) that I reviewed their record and presented the opportunity for them to ask any questions regarding the visit today. The patient agreed to participate. History of Present Illness Reason for Consultation: Acute ischemic stroke Requesting Physician: Jason Pierce MD Attending Physician: Jason Pierce MD History of Present Illness Inna Sinha is an 84 Y.O female patient with a PMH of obesity, HTN and HLP who had visual field changes on Sunday on 06/10/2025 without any other focal neurological deficits, later 2 or 3 days later she started developing signifi cant headache affecting the right side of her head. Upon evaluation in the emergency room the patient was found to have a left visual field cut with CAT scan showing subacute stroke. Lyme titers were positive and the patient was started on IV ceftriaxone. She was started on aspirin and Plavix. LP was deferred due to concerns about mass effect from the stroke and due to low suspicion for MEDICAL RECORDS MANAGER infection. Today she does me that she has been doing okay her headaches have improved. She is not aware of any tick bites. Her vision has been improving as well. She still denies any other focal neurological deficits., Allergies Allergy/AdvReac Type Severity Reaction Status Date / Time No Known Allergies Allergy Verified 04/21/23 15:12 Home Medications Medication Instructions Recorded Confirmed Type aspirin 81 mg chewable tablet 81 mg PO DAILY 06/12/25 06/12/25 History bisoprolol fumarate 5 mg tablet 5 mg PO DAILY 06/12/25 06/12/25 History clonidine HCl 0.2 mg tablet 0.1 mg PO BID 06/12/25 06/12/25 History isosorbide mononitrate 30 mg 30 mg PO DAILY 06/12/25 06/12/25 History tablet,extended release 24 hr rosuvastatin 10 mg tablet 10 mg PO DAILY 06/12/25 06/12/25 History spironolactone 25 mg tablet 25 mg PO DAILY 06/12/25 06/12/25 History Patient History Medical History (Updated 06/12/25 @ 10:18 by KIERAN Yanes) Atypical chest pain Prediabetes Hyperlipidemia Hypertension Hyperkalemia Surgical History (Updated 06/12/25 @ 08:21 by KIERAN Yanes) History of appendectomy History of hysteroscopy Social History (Updated 06/12/25 @ 10:13 by KIERAN Yanes) Smoking Status: Never smoker Do You Dip or Chew Tobacco: No; Hx Alcohol Use: No Hx Substance Use: No Preferred Language: Serbian Communication Ability: Effective Communication Tools: IPad Restaurant Management Internship Required: Yes Beliefs That Will Affect Care: None Current Living Situation: Family Feels Safe at Home: Yes Safety Concerns: Feels Safe At This Time Assistive Devices: Denture - Lower Review of Systems negative except for the points mentioned in HPI Physical Exam General Constitutional: Appearance normally developed Head and face: normocephalic and atraumatic Eyes: no ptosis, no anisocoria, and no dysconjugate gaze Respiratory: normal effort Cardiovascular: regular rhythm and regular rate Abdomen: non distended Skin: no rashes, lesions, or ulcers noted Psychiatric: normal judgement and insight, normal mood, and normal affect NEUROLOGIC EXAMINATION: Mental Status:alert, oriented to time, place, person, normal recent memory, normal remote memory, normal attention span, normal concentration, normal language and normal fund of knowledge Cranial Nerves: CN 2 - no visual defect on confrontation and pupils round, equal, reactive to light CN 3, 4, 6 - extra-ocular movements intact and no nystagmus CN 5 - facial sensation intact CN 7 - no facial asymmetry CN 8 - intact hearing CN 9, 10 - palate symmetric, normal gag CN 11 - good shoulder shrug CN 12 - tongue midline MOTOR: Strength was at least antigravity throughout, Pronator drift was absent and There were no abnormal movements SENSATION: intact and symmetric to pinprick, light touch, vibration and joint position GAIT: stable, no ataxia and can perform tandem walking COORDINATION: no ataxia with finger to nose testing and heel to barron testing REFLEXES: cannot assess over telemedicine Results & Data Vital Signs (Past 12 Hours) Vital Signs Temp Pulse Pulse Resp BP Pulse Ox O2 Del Method 06/13/25 12:01 36.6 C 69 16 148/79 H 93 Room Air 06/13/25 08:10 36.7 C 62 20 155/84 H 94 Room Air 06/13/25 07:30 73 06/13/25 03:43 36.6 C 73 16 127/67 95 Room Air Laboratory Results Laboratory Results - last 24 hr 06/13/25 07:56 WBC 5.72 RBC 4.16 L Hgb 12.8 Hct 36.9 L MCV 88.7 MCH 30.8 MCHC 34.7 RDW Std Deviation 39.4 RDW Coeff of Elijah 12.1 Plt Count 185 MPV 9.8 Immature Gran % (Auto) 0.5 Neut % (Auto) 65.1 Lymph % (Auto) 26.4 [place] % (Auto) 6.3 Eos % (Auto) 1.0 Baso % (Auto) 0.7 Neut # (Auto) 3.72 Lymph # (Auto) 1.51 [place] # (Auto) 0.36 Eos # (Auto) 0.06 Baso # (Auto) 0.04 Immature Gran # (Auto) 0.03 Sodium 139 Potassium 4.4 Chloride 108 H Carbon Dioxide 24 Anion Gap 7 BUN 12 Creatinine 0.66 Est Cr Clr Drug Dosing 66.3 eGFR 87.53 BUN/Creatinine Ratio 18.2 Glucose 102 H Estimat Average Glucose 148 Hemoglobin A1c 6.8 H Calcium 8.5 L Triglycerides 77 Cholesterol 201 H LDL Cholesterol, Calc 144 VLDL Cholesterol, Calc 15 HDL Cholesterol 42 Cholesterol/HDL Ratio 4.8 Diagnostic Findings CTA of the head and neck showed mild multi focal atherosclerotic disease of the aortic arch and the carotid bulbs with additional ventricular size. MRI of the brain shows a right ENTERPRISE SOFTWARE DEVELOPER distribution infarct in the right occipital lobe. ECG Additional Comments: EKG with NSR with premature atrial complexes
[2025-06-13] MEDS: GADOBUTROL 65ML VIAL IV ONE (15:38)
--- NOTE | 2025-06-13 16:23 | Magnetic Resonance Report ---
MRI of the brain performed with and without IV contrast History: Infarct Comparison: CT on 06/12/2025 Technique: Multiplanar T1 weighted, axial T2/FLAIR, and susceptibility images were obtained without intravenous contrast. Following intravenous gadolinium based contrast administration, axial T2 weighted, diffusion, and T1-weighted images were obtained. Findings: No evidence for intracranial mass lesion, mass-effect, midline shift, or abnormal extra-axial fluid collection. Mild increased patchy enhancement within the medial right occipital lobe related to infarct, otherwise without masslike enhancement. The orbits are grossly unremarkable. The ventricles and sulci are within normal limits for age. Small to moderate area of restricted diffusion within the medial right occipital lobe most compatible with acute infarct. Mild scattered high signal intensity foci in the white matter on T2/FLAIR, is most consistent with chronic small vessel ischemic disease. Normal intravascular flow voids. Impression: An area of restricted diffusion in the medial right occipital lobe, is compatible with an acute infarct. Electronically signed by Tanner Bradley 06-13-2025 4:22 PM
[2025-06-13] MEDS: cefTRIAXone SODIUM 2,000 MG/50 ML BAG IV SCH (17:19)
--- NOTE | 2025-06-13 19:54 | Hospitalist Progress Note ---
Date of Service June 13, 2025 Assessment & Plan (1) Occipital stroke: (2) Palpitations: (3) Lyme disease: (4) Multiple thyroid nodules: (5) Hypertension: (6) Hyperlipidemia: Plan Per admitting service notes with addendum 84 year old female with PMH significant for prediabetes, hyperlipidemia, hypertension, and palpitations who presented to the ED on 06/12/2025 with headache and blurry vision x4 days and is admitted for occipital stroke. Occipital stroke Patient presented with severe headache and blurry vision x4 days Head CT revealed ill defined area of hypodensity in right occipital lobe - could be acute to subacute infarct in right posterior cerebral artery Head CTA with no stenosis, aneurysm, or dissection Neck CTA with no stenosis, aneurysm, or dissection; mild atherosclerotic calcifications in arch of aorta, bilateral carotid bulbs and internal carotid arteries Brain MRI confirmed right occipital infarct measuring 4.6cm without hemorrhage, midline shift, hydrocephalus Plan: -Neuro checks q4hr -Echo ordered -PT/OT/ST consults -A1C and lipid panel in am -Neurology consulted and recommended DAPT and ziopatch -Plavix 300mg x1, continue 75mg daily -Continue home baby aspirin 06/13 no new neurologic symptoms Continue aspirin plus Plavix, statin echo pending blood pressure within acceptable range at this time continue telemetry monitoring Lyme disease Lyme screen, IgM and IgG all positive Patient denies known tick bite/rash or constitutional symptoms Labs unremarkable with no leukocytosis/penia or transaminitis 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 given severe headache on presentation *LP deferred at this time by recommendation of Neurology given need for DAPT for stroke 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 Can consider ID consult 06/13 Concern for possible Lyme meningitis given headache and Lyme IgM positive test Difficult to obtain lumbar tap at this point as patient is already on dual antiplatelet, discussed with neurologist Recommend brain MRI with contrast to assess for leptomeningeal enhancement Continue IV ceftriaxone for now Will consult ID Palpitations Patient notes history of intermittent palpitations previously evaluated by Cardiology Admitting EKG revealed PACs Cardiology previously recommended Zio monitor but patient declines Recommend Ziopatch at dc for stroke as well as PACs Thyroid nodules Neck CTA revealed few nodules in both lobes of thyroid Thyroid US ordered Discussed with patient about possibility for biopsy depending on US findings which can be done outpatient Hypertension Hold bisoprolol, clonidine, imdur, spironolactone for permissive hypertension Hyperlipidemia Continue rosuvastatin DVT Prophylaxis: SQ Heparin Code Status: FULL CODE - As per discussion at bedside with the patient. PCP: Chanelle Can Disposition: admit to [facility] tele Admission and Anticipated Discharge Date Admission Date: June 12, 2025 Subjective seen resting in bed, comfortable, not in distress Factual service utilized for communication States she feels okay overall, except for some moderate headache on the right side No new neurologic symptoms, no visual problems No neck pain, fevers or chills no chest pain, dyspnea, palpitations, dizziness no other symptoms Review of Systems Review of Systems: all noted and negative except for above Physical Exam Physical Exam: General- oriented x 3, not in distress, speaks in sentences with no effort or accessory muscle use Eyes- anicteric Neck- no JVD Lungs- clear breath sounds bilaterally, no rales/wheezes Heart- normal rate, regular rhythm; no murmurs Abdomen- normal bowel sounds, nondistended, soft, nontender Extremities- no pretibial edema, no calf tenderness Neuro- alert, oriented x 3; no gross focal neurologic deficits no neck rigidity Skin- warm & dry Results & Data Results & Data Vital Signs (Past 12 Hours) Vital Signs Temp Pulse Pulse Resp BP Pulse Ox O2 Del Method 06/13/25 14:00 68 06/13/25 12:01 36.6 C 69 16 148/79 H 93 Room Air 06/13/25 08:10 36.7 C 62 20 155/84 H 94 Room Air all noted and reviewed including below
[2025-06-14 07:23] LABS: Hematocrit (blood only) 36.9 % (37.0-47.0); Hemoglobin 13.3 g/dl (12.0-16.0); Immature Granulocytes # (auto) 0.01 K/uL (0.01-0.20); Immature Granulocytes % (auto) 0.2 %; Mean Corpuscular Hemoglobin 31.6 pg (25.0-34.0); Mean Corpuscular Volume 87.6 fL (80.0-100.0); Platelet Count 202 K/uL (130-400); RDW Standard Deviation 38.1 fL (36.4-46.3); Red Blood Count 4.21 M/uL (4.20-5.40); White Blood Count 4.82 K/ul (4.8-10.8)
[2025-06-14 07:56] LABS: Anion Gap 6.0 (3-11); Blood Urea Nitrogen 17.0 mg/dl (6-23); Calcium 9.0 mg/dl (8.6-10.3); Carbon Dioxide 26.0 mmol/L (21-32); Chloride 107.0 mmol/L (98-107); Creatinine Clr Calc Pharmacy 64.3 ml/min; Glucose 119.0 mg/dl (70-99(Fasting)); Potassium 4.4 mmol/L (3.5-5.1); Sodium 139.0 mmol/L (136-145)
[2025-06-14] MEDS: BISOPROLOL FUMARATE 5 MG TAB PO SCH (09:01)
[2025-06-14] MEDS: ISOSORBIDE MONO EXTENDED REL 30 MG TABCR PO SCH (10:52)
--- NOTE | 2025-06-14 16:42 | Hospitalist Progress Note ---
Date of Service June 14, 2025 Assessment & Plan (1) Occipital stroke: (2) Palpitations: (3) Lyme disease: (4) Multiple thyroid nodules: (5) Hypertension: (6) Hyperlipidemia: Plan Per admitting service notes with addendum 84 year old female with PMH significant for prediabetes, hyperlipidemia, hypertension, and palpitations who presented to the ED on 06/12/2025 with headache and blurry vision x4 days and is admitted for occipital stroke. Occipital stroke Patient presented with severe headache and blurry vision x4 days Head CT revealed ill defined area of hypodensity in right occipital lobe - could be acute to subacute infarct in right posterior cerebral artery Head CTA with no stenosis, aneurysm, or dissection Neck CTA with no stenosis, aneurysm, or dissection; mild atherosclerotic calcifications in arch of aorta, bilateral carotid bulbs and internal carotid arteries Brain MRI confirmed right occipital infarct measuring 4.6cm without hemorrhage, midline shift, hydrocephalus Plan: -Neuro checks q4hr -Echo ordered -PT/OT/ST consults -A1C and lipid panel in am -Neurology consulted and recommended DAPT and ziopatch -Plavix 300mg x1, continue 75mg daily -Continue home baby aspirin 06/14 no new neurologic symptoms Continue aspirin plus Plavix, statin echo EF 55-60%, negative bubble study, mild aortic regurgitation and tricuspid regurgitation blood pressure within acceptable range at this time continue telemetry monitoring per Neuro: Continue Aspirin 81mg andPplavix 75mg , Atorvastatin 80mg Follow echocardiogram Ziopatch upon discharge Lyme disease Lyme screen, IgM and IgG all positive Patient denies known tick bite/rash or constitutional symptoms Labs unremarkable with no leukocytosis/penia or transaminitis 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 given severe headache on presentation *LP deferred at this time by recommendation of Neurology given need for DAPT for stroke 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 Can consider ID consult 06/14 Concern for possible Lyme meningitis given headache and Lyme IgM positive test Difficult to obtain lumbar tap at this point as patient is already on dual antiplatelet, discussed with neurologist Recommend brain MRI with contrast to assess for leptomeningeal enhancement Continue IV ceftriaxone for now Will consult ID Palpitations Patient notes history of intermittent palpitations previously evaluated by Cardiology Admitting EKG revealed PACs Cardiology previously recommended Zio monitor but patient declines Recommend Ziopatch at dc for stroke as well as PACs Thyroid nodules Neck CTA revealed few nodules in both lobes of thyroid Thyroid US ordered Discussed with patient about possibility for biopsy depending on US findings which can be done outpatient Hypertension Hold bisoprolol, clonidine, imdur, spironolactone for permissive hypertension Hyperlipidemia Continue rosuvastatin DVT Prophylaxis: SQ Heparin Code Status: FULL CODE - As per discussion at bedside with the patient. PCP: Chanelle Can Disposition: admit to med tele Admission and Anticipated Discharge Date Admission Date: June 12, 2025 Subjective translation assistance provided by darcy Shelton over the phone feels fine today headache better, only with intermittent episodes, R side no new neuroglic symptoms Review of Systems Review of Systems: all noted and negative except for above Physical Exam Physical Exam: General- oriented x 3, not in distress, speaks in sentences with no effort or accessory muscle use Eyes- anicteric Neck- no JVD Lungs- clear breath sounds bilaterally, no rales/wheezes Heart- normal rate, regular rhythm; no murmurs Abdomen- normal bowel sounds, nondistended, soft, nontender Extremities- no pretibial edema, no calf tenderness Neuro- alert, oriented x 3; no gross focal neurologic deficits Skin- warm & dry Results & Data Results & Data Vital Signs (Past 12 Hours) Vital Signs Temp Pulse Pulse Resp BP Pulse Ox O2 Del Method 06/14/25 15:43 36.4 C L 63 16 107/66 94 Room Air 06/14/25 15:00 61 06/14/25 10:39 36.4 C L 74 14 170/85 H 96 Room Air 06/14/25 07:30 65 06/14/25 07:08 36.6 C 63 14 164/80 H 95 Room Air all noted and reviewed including below
[2025-06-14 20:05] VITALS: RESP 18
--- NOTE | 2025-06-15 07:59 | Pharmacy Report ---
- Date of Service June 15, 2025 - Pharmacy CVA/TIA Medication Review Medications to Prevent Stroke handout has been added to the patients discharge packet. Antiplatelet(s) * aspirin 81mg PO daily + clopidogrel 75mg PO daily Cholesterol * High intensity statin: rosuvastatin 20 mg daily DVT Prophylaxis * Enoxaparin SQ Therapeutic Anticoagulation * No history of Afib/Aflutter noted Type 2 Diabetes * Patient does not have T2DM
[2025-06-15 08:31] LABS: Hematocrit (blood only) 38.8 % (37.0-47.0); Hemoglobin 13.4 g/dl (12.0-16.0); Immature Granulocytes # (auto) 0.01 K/uL (0.01-0.20); Immature Granulocytes % (auto) 0.2 %; Mean Corpuscular Hemoglobin 30.5 pg (25.0-34.0); Mean Corpuscular Volume 88.4 fL (80.0-100.0); Platelet Count 211 K/uL (130-400); RDW Standard Deviation 38.9 fL (36.4-46.3); Red Blood Count 4.39 M/uL (4.20-5.40); White Blood Count 4.83 K/ul (4.8-10.8)
[2025-06-15 08:47] LABS: Anion Gap 6.0 (3-11); Blood Urea Nitrogen 16.0 mg/dl (6-23); Calcium 9.2 mg/dl (8.6-10.3); Carbon Dioxide 26.0 mmol/L (21-32); Chloride 108.0 mmol/L (98-107); Creatinine Clr Calc Pharmacy 58.3 ml/min; Glucose 115.0 mg/dl (70-99(Fasting)); Potassium 4.5 mmol/L (3.5-5.1); Sodium 140.0 mmol/L (136-145)
[2025-06-15] MEDS: ROSUVASTATIN CALCIUM 20 MG TAB PO SCH (08:57)
[2025-06-15] MEDS: ENOXAPARIN INJ 40 MG/0.4 ML SYR SQ SCH (10:27)
--- NOTE | 2025-06-15 10:40 | Infectious Disease Consult ---
Date of Service June 15, 2025 Telehealth Information I performed this visit using a real-time telehealth connection between my location and the patients location ([facility]). After connecting through interactive tele-video, patient was identified by name and date of and/or wristband check.Patient (or authorized healthcare advertising representative) was informed that this was a telemedicine visit and it was being conducted confidentially over secure lines. My office door was closed and no o ne else was present in the room with me.Patient (or authorized healthcare advertising representative) provided consent to proceed with the visit, expressed an understanding of privacy and security of the telemedicine visit, and gave permission to have a hospital advertising representative in the room in order to assist with the visit and to conduct portions of the visit, as needed. I informed the patient (or authorized healthcare advertising representative) that I reviewed their record and presented the opportunity for them to ask any questions regarding the visit today. The patient agreed to participate. headache, possible lyme meningitis History of Present Illness History of Present Illness 84 y/o F PMHx prediabetes, hyperlipidemia, hypertension, and palpitations who presented to the ED on 06/12/2025 with headache and blurry vision x4 days and is admitted for occipital stroke. Allergies Allergy/AdvReac Type Severity Reaction Status Date / Time No Known Allergies Allergy Verified 04/21/23 15:12 Home Medications Medication Instructions Recorded Confirmed Type aspirin 81 mg chewable tablet 81 mg PO DAILY 06/12/25 06/12/25 History bisoprolol fumarate 5 mg tablet 5 mg PO DAILY 06/12/25 06/12/25 History clonidine HCl 0.2 mg tablet 0.1 mg PO BID 06/12/25 06/12/25 History isosorbide mononitrate 30 mg 30 mg PO DAILY 06/12/25 06/12/25 History tablet,extended release 24 hr rosuvastatin 10 mg tablet 10 mg PO DAILY 06/12/25 06/12/25 History spironolactone 25 mg tablet 25 mg PO DAILY 06/12/25 06/12/25 History Patient History Medical History (Updated 06/14/25 @ 02:02 by Tess Tripp DO) Atypical chest pain Prediabetes Hyperlipidemia Hypertension Hyperkalemia Surgical History (Updated 06/12/25 @ 08:21 by KIERAN Yanes) History of appendectomy History of hysteroscopy Social History (Updated 06/12/25 @ 10:13 by KIERAN Yanes) Smoking Status: Never smoker Do You Dip or Chew Tobacco: No; Hx Alcohol Use: No Hx Substance Use: No Preferred Language: Senegalese Communication Ability: Effective Communication Tools: IPad and Other Machine Bookkeeper Required: Yes Beliefs That Will Affect Care: None Current Living Situation: Family Feels Safe at Home: Yes Safety Concerns: Feels Safe At This Time Assistive Devices: Denture - Lower Results & Data Vital Signs (Past 12 Hours) Vital Signs Temp Pulse Resp BP BP Pulse Ox O2 Del Method 06/15/25 08:00 36.4 C L 59 L 18 167/82 H 93 Room Air 06/15/25 02:40 36.5 C 56 L 18 164/92 H 97 Room Air 06/15/25 00:15 36.5 C 57 L 18 153/90 H 94 Room Air Diagnostic Findings Findings: No evidence for intracranial mass lesion, mass-effect, midline shift, or abnormal extra-axial fluid collection. Mild increased patchy enhancement within the medial right occipital lobe related to infarct, otherwise without masslike enhancement. The orbits are grossly unremarkable. The ventricles and sulci are within normal limits for age. Small to moderate area of restricted diffusion within the medial right occipital lobe most compatible with acute infarct. Mild scattered high signal intensity foci in the white matter on T2/FLAIR, is most consistent with chronic small vessel ischemic disease. Normal intravascular flow voids. Impression: An area of restricted diffusion in the medial right occipital lobe, is compatible with an acute infarct.
[2025-06-15 10:58] VITALS: BP 152/89; PULSE 61; TEMP 97.7; O2SAT 94
--- NOTE | 2025-06-15 13:08 | Hospitalist Progress Note ---
Date of Service June 15, 2025 Assessment & Plan (1) Occipital stroke: (2) Palpitations: (3) Lyme disease: (4) Multiple thyroid nodules: (5) Hypertension: (6) Hyperlipidemia: Plan per admitting service notes with addendum: 84 year old female with PMH significant for prediabetes, hyperlipidemia, hypertension, and palpitations who presented to the ED on 06/12/2025 with headache and blurry vision x4 days and is admitted for occipital stroke. (1) Occipital stroke: (2) Palpitations: (3) Lyme disease: (4) Multiple thyroid nodules: (5) Hypertension: (6) Hyperlipidemia: Plan Per admitting service notes with addendum 84 year old female with PMH significant for prediabetes, hyperlipidemia, hypertension, and palpitations who presented to the ED on 06/12/2025 with headache and blurry vision x4 days and is admitted for occipital stroke. Acute CVA, right occipital lobe Patient presented with severe headache and blurry vision x4 days Head CT revealed ill defined area of hypodensity in right occipital lobe - could be acute to subacute infarct in right posterior cerebral artery Head CTA with no stenosis, aneurysm, or dissection Neck CTA with no stenosis, aneurysm, or dissection; mild atherosclerotic calcifications in arch of aorta, bilateral carotid bulbs and internal carotid arteries Brain MRI confirmed right occipital infarct measuring 4.6cm without hemorrhage, midline shift, hydrocephalus Echocardiogram: LV ejection fraction 55 to 60% Right ventricular cavity size is normal Right ventricular systolic function is normal Mild aortic regurgitation Tricuspid regurgitation Bubble study negative for overt [id number] intracardiac shunt A1c 6.8 Triglyceride 77, cholesterol 201, LDL 144, VLDL 15, HDL 42 06/15 per Neuro: Continue Aspirin 81mg and Plavix 75mg , Atorvastatin 80mg Ziopatch upon discharge headache resolving no new neurologic symptoms follow-up with neurologist in 2 to 3 weeks Prediabetes A1c 6.8 Outpatient follow up Lyme disease Lyme screen, IgM and IgG all positive Patient denies known tick bite/rash or constitutional symptoms Labs unremarkable with no leukocytosis/penia or transaminitis 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 Aguillon, does not recommend treatment for Lyme meningitis Patient has received 3 days of IV ceftriaxone, will be discharging on doxycycline twice a day for 7 more days to complete 10-day course of treatment Palpitations Patient notes history of intermittent palpitations previously evaluated by Cardiology Admitting EKG revealed PACs Noted to have PAT's while on quality assurance monitor chassis Cardiology previously recommended Zio monitor but patient declines Recommend Ziopatch at la for stroke as well as PACs Thyroid nodules Neck CTA revealed few nodules in both lobes of thyroid Thyroid US: 1. Mid right thyroid nodule measuring 1.2 x 1.0 x 0.9 cm. This nodule is solid, isoechoic, wider than tall, has ill-defined margins, and no echogenic foci. TI-RADS points: 3. TI-RADS category: TR3. This nodule is mildly suspicious but no FNA or follow-up is necessary given the small size of this nodule. 2. Lower pole right thyroid nodule measuring 1.1 x 1.1 x 0.9 cm. This nodule is solid, isoechoic, wider than tall, has smooth margins, and no echogenic foci. TI-RADS points: 3. TI-RADS category: TR3. This nodule is mildly suspicious but no FNA or follow-up is necessary given the small size of this nodule. TSH elevated at 4.5, free T4 normal at 0.8 Further work up, management, and ff up as outpatient Hypertension continue usual bisoprolol, isosorbide mononitrate, amlodipine Hyperlipidemia rosuvastatin increased to 20 mg p.o. daily DVT Prophylaxis: SQ Heparin Code Status: FULL CODE - As per discussion at bedside with the patient. PCP: Chanelle Can Disposition: admit to [facility] Admission and Anticipated Discharge Date Admission Date: June 12, 2025 Subjective follow-up for acute CVA, Lyme disease, etc. Process Relations track inspector utilized for assistance with translation Patient seen resting in bed, comfortable, in good spirits States she feels fine overall Right-sided headache is much better, occasional, mild no vision problems, or any other new neurologic symptoms denies neck pain, fevers or chills No chest pain, palpitations, dizziness No other new symptoms Review of Systems Review of Systems: all noted and negative except for above Physical Exam Physical Exam: General- oriented x 3, not in distress, speaks in sentences with no effort or accessory muscle use Eyes- anicteric Neck- no JVD Lungs- clear breath sounds bilaterally, no rales/wheezes Heart- normal rate, regular rhythm; no murmurs Abdomen- normal bowel sounds, nondistended, soft, nontender Extremities- no pretibial edema, no calf tenderness Neuro- alert, oriented x 3; no gross focal neurologic deficits Skin- warm & dry Results & Data Results & Data Vital Signs (Past 12 Hours) Vital Signs Temp Pulse Resp BP BP Pulse Ox O2 Del Method 06/15/25 10:58 36.5 C 61 18 152/89 H 94 Room Air 06/15/25 08:00 36.4 C L 59 L 18 167/82 H 93 Room Air 06/15/25 02:40 36.5 C 56 L 18 164/92 H 97 Room Air all noted and reviewed including below
--- NOTE | 2025-06-15 13:26 | Discharge Summary ---
Discharge Summary Date of Service June 15, 2025 Principal Dx & Hospital Course #1 = Principal Diagnosis (1) Occipital stroke: (2) Palpitations: (3) Lyme disease: (4) Multiple thyroid nodules: (5) Hypertension: (6) Hyperlipidemia: Plan Per admitting service notes with addendum 84 year old female with PMH significant for prediabetes, hyperlipidemia, hypertension, and palpitations who presented to the ED on 06/12/2025 with headache and blurry vision x4 days and is admitted for occipital stroke. Acute CVA, right occipital lobe Patient presented with severe headache and blurry vision x4 days Head CT revealed ill defined area of hypodensity in right occipital lobe - could be acute to subacute infarct in right posterior cerebral artery Head CTA with no stenosis, aneurysm, or dissection Neck CTA with no stenosis, aneurysm, or dissection; mild atherosclerotic calcifications in arch of aorta, bilateral carotid bulbs and internal carotid arteries Brain MRI confirmed right occipital infarct measuring 4.6cm without hemorrhage, midline shift, hydrocephalus Echocardiogram: LV ejection fraction 55 to 60% Right ventricular cavity size is normal Right ventricular systolic function is normal Mild aortic regurgitation Tricuspid regurgitation Bubble study negative for overt [id number] intracardiac shunt A1c 6.8 Triglyceride 77, cholesterol 201, LDL 144, VLDL 15, HDL 42 06/15 per Neuro: Continue Aspirin 81mg and Plavix 75mg , Atorvastatin 80mg Ziopatch upon discharge headache resolving no new neurologic symptoms follow-up with neurologist in 2 to 3 weeks Lyme disease Lyme screen, IgM and IgG all positive Patient denies known tick bite/rash or constitutional symptoms Labs unremarkable with no leukocytosis/penia or transaminitis 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 Aguillon, does not recommend treatment for Lyme meningitis Patient has received 3 days of IV ceftriaxone, will be discharging on doxycycline twice a day for 7 more days to complete 10-day course of treatment Hypertension heart rate noted to be on the lower side, 59-61 Discontinue clonidine, changed to amlodipine 5 mg daily continue usual bisoprolol, isosorbide mononitrate please monitor closely as an outpatient Prediabetes A1c 6.8 Outpatient follow up Palpitations Patient notes history of intermittent palpitations previously evaluated by Cardiology Admitting EKG revealed PACs Noted to have PAT's while on threat monitoring analyst Cardiology previously recommended Zio monitor but patient declines Recommend Ziopatch at ar for stroke as well as PACs Thyroid nodules Neck CTA revealed few nodules in both lobes of thyroid Thyroid US: 1. Mid right thyroid nodule measuring 1.2 x 1.0 x 0.9 cm. This nodule is solid, isoechoic, wider than tall, has ill-defined margins, and no echogenic foci. TI-RADS points: 3. TI-RADS category: TR3. This nodule is mildly suspicious but no FNA or follow-up is necessary given the small size of this nodule. 2. Lower pole right thyroid nodule measuring 1.1 x 1.1 x 0.9 cm. This nodule is solid, isoechoic, wider than tall, has smooth margins, and no echogenic foci. TI-RADS points: 3. TI-RADS category: TR3. This nodule is mildly suspicious but no FNA or follow-up is necessary given the small size of this nodule. TSH elevated at 4.5, free T4 normal at 0.8 Further work up, management, and ff up as outpatient Hyperlipidemia rosuvastatin increased to 20 mg p.o. daily DVT Prophylaxis: SQ Heparin Code Status: FULL CODE - As per discussion at bedside with the patient. PCP: Chanelle Can Disposition: [facility] Notes For Next Care Provider Medication Changes From Visit Per medical reconciliation Admission HPI Per Admitting Provider 84 year old female with PMH significant for prediabetes, hyperlipidemia, hype rtension, and palpitations who presented to the ED on 06/12/2025 with headache and blurry vision x4 days. History obtained with the help of patient's granddaughter, as patient only speaks [place]ian. She reports a severe headache that started on Sunday and has been constant since then with no relief from Tylenol or Advil. She reports associated blurry vision that waxes and wanes in severity. She also has unsteady gait and nausea attributed to the blurry vision. Denies any falls. She reports a history of lyme disease where she had ticks on her approximately 2 years ago and completed treatment. Denies any recent known ticks. Denies any fevers, chills, fatigue, malaise, chest pain, SOB, abdominal pain, vomiting, dysuria, constipation, diarrhea, rashes, weakness on one side of the body, difficulty with speech. Notes palpitations that are not new and she has discussed with Cardiology in the past. Admission Exam Per Admitting Provider General/Psych: WD/WN, sitting up in bed, NAD, conversing easily Head: normocephalic, atraumatic, no facial droop Eyes: normal inspection, PERRL, conjunctivae pink ENT: external ear and nose normal, oropharynx normal Neck: normal visual inspection, trachea midline Respiratory: normal respiratory effort, lungs clear to auscultation, no wheeze/rales/rhonchi, no accessory muscle use Cardiovascular: regular rate and rhythm, no murmur/rub/gallop, no JVD Extremities: no cyanosis or clubbing, normal peripheral pulses, no BLE edema Abdomen/GI: normal bowel sounds, soft, nontender Neurologic/MSK: A+Ox3, CN's II-XI intact bilaterally, motor strength 5/5, moves all extremities, negative Kernig's and Brudzinski's Skin: no rashes, normal color, warm and dry Discharge Exam General- oriented x 3, not in distress, speaks in sentences with no effort or accessory muscle use Eyes- anicteric Neck- no JVD Lungs- clear breath sounds bilaterally, no rales/wheezes Heart- normal rate, regular rhythm; no murmurs Abdomen- normal bowel sounds, nondistended, soft, nontender Extremities- no pretibial edema, no calf tenderness Neuro- alert, oriented x 3; no gross focal neurologic deficits Skin- warm & dry Updated Medication List Medication Instructions Recorded Confirmed Type aspirin 81 mg chewable tablet 81 mg PO DAILY 06/12/25 06/12/25 History bisoprolol fumarate 5 mg tablet 5 mg PO DAILY 06/12/25 06/12/25 History isosorbide mononitrate 30 mg 30 mg PO DAILY 06/12/25 06/12/25 History tablet,extended release 24 hr spironolactone 25 mg tablet 25 mg PO DAILY 06/12/25 06/12/25 History L.acidop,casei,lactis,rham-B.lact,karissa 1 cap PO DAILY 14 days #14 caps 06/15/25 Rx 625 mg (10 billion cell) capsule (Advanced Probiotic) amlodipine 5 mg tablet 5 mg PO QAM 30 days #30 tabs 06/15/25 Rx clopidogrel 75 mg tablet 75 mg PO QAM #30 tabs 06/15/25 Rx doxycycline hyclate 100 mg capsule 100 mg PO BID #14 caps 06/15/25 Rx rosuvastatin 20 mg tablet 20 mg PO DAILY 30 days #30 tabs 06/15/25 Rx Hospital Stay Data Consultations 06/12/25 07:40 ED Decision to Admit Stat 06/12/25 16:50 Consult Neurology Routine 06/14/25 08:51 Consult Infectious Diseases Routine Diagnostic Imagining Performed Laboratory Results WBC 4.83 K/ul (4.8-10.8) 06/15/25 07:42 RBC 4.39 M/uL (4.20-5.40) 06/15/25 07:42 Hgb 13.4 g/dl (12.0-16.0) 06/15/25 07:42 Hct 38.8 % (37.0-47.0) 06/15/25 07:42 MCV 88.4 fL (80.0-100.0) 06/15/25 07:42 MCH 30.5 pg (25.0-34.0) 06/15/25 07:42 MCHC 34.5 g/dL (32.0-36.0) 06/15/25 07:42 RDW Std Deviation 38.9 fL (36.4-46.3) 06/15/25 07:42 RDW Coeff of Elijah 12.0 % (11.5-14.5) 06/15/25 07:42 Plt Count 211 K/uL (130-400) 06/15/25 07:42 MPV 9.5 fL (9.4-12.4) 06/15/25 07:42 Immature Gran % (Auto) 0.2 % 06/15/25 07:42 Neut % (Auto) 48.9 % 06/15/25 07:42 Lymph % (Auto) 40.8 % 06/15/25 07:42 [place] % (Auto) 7.0 % 06/15/25 07:42 Eos % (Auto) 2.3 % 06/15/25 07:42 Baso % (Auto) 0.8 % 06/15/25 07:42 Neut # (Auto) 2.36 K/uL (1.40-6.50) 06/15/25 07:42 Lymph # (Auto) 1.97 K/uL (1.20-3.40) 06/15/25 07:42 [place] # (Auto) 0.34 K/uL (0.11-0.59) 06/15/25 07:42 Eos # (Auto) 0.11 K/uL (0.00-0.50) 06/15/25 07:42 Baso # (Auto) 0.04 K/uL (0.00-0.20) 06/15/25 07:42 Immature Gran # (Auto) 0.01 K/uL (0.01-0.20) 06/15/25 07:42 ESR 12 mm/hr (0-30) 06/12/25 05:32 PT 10.9 Seconds (9.0-12.0) 06/12/25 05:32 INR 1.0 (0.9-1.1) 06/12/25 05:32 Sodium 140 mmol/L (136-145) 06/15/25 07:42 Potassium 4.5 mmol/L (3.5-5.1) 06/15/25 07:42 Chloride 108 mmol/L (98-107) H 06/15/25 07:42 Carbon Dioxide 26 mmol/L (21-32) 06/15/25 07:42 Anion Gap 6 (3-11) 06/15/25 07:42 BUN 16 mg/dl (6-23) 06/15/25 07:42 Creatinine 0.75 mg/dl (0.6-1.2) 06/15/25 07:42 Est Cr Clr Drug Dosing 58.3 ml/min 06/15/25 07:42 eGFR 79.44 06/15/25 07:42 BUN/Creatinine Ratio 21.3 (10-20) H 06/15/25 07:42 Glucose 115 mg/dl (70-99(Fasting)) H 06/15/25 07:42 Estimat Average Glucose 148 mg/dl 06/13/25 07:56 Hemoglobin A1c 6.8 % (4.5-5.6) H 06/13/25 07:56 Calcium 9.2 mg/dl (8.6-10.3) 06/15/25 07:42 Total Bilirubin 1.0 mg/dl (0.2-1.0) 06/12/25 05:45 AST 15 U/L (13-39) 06/12/25 05:45 ALT 13 U/L (7-52) 06/12/25 05:45 Alkaline Phosphatase 66 U/L (34-104) 06/12/25 05:45 Total Protein 7.3 gm/dl (6.0-8.3) 06/12/25 05:45 Albumin 4.4 gm/dl (3.4-5.0) 06/12/25 05:45 Globulin 2.9 gm/dl (2.5-4.0) 06/12/25 05:45 Albumin/Globulin Ratio 1.5 (0.9-2) 06/12/25 05:45 Triglycerides 77 mg/dl (0-150) 06/13/25 07:56 Cholesterol 201 mg/dl (0-200) H 06/13/25 07:56 LDL Cholesterol, Calc 144 mg/dl 06/13/25 07:56 VLDL Cholesterol, Calc 15 mg/dl (0-30) 06/13/25 07:56 HDL Cholesterol 42 mg/dl 06/13/25 07:56 Cholesterol/HDL Ratio 4.8 (0-5) 06/13/25 07:56 TSH 4.577 uIu/ml (0.300-4.500) H 06/12/25 05:45 Free T4 0.82 ng/dl (0.61-1.60) 06/12/25 05:45 Anaplasma Smear See Comment 06/12/25 05:32 Babesia Smear See Comment 06/12/25 05:32 Lyme Disease Screen Positive (Negative) H 06/12/25 05:32 Lyme Tier 2 IgG Confirm Positive (Negative) H 06/12/25 05:32 Lyme Tier 2 IgM Confirm Positive (Negative) H 06/12/25 05:[address] 06/12/25 05:25 EXAM: CT head/brain wo con CLINICAL HISTORY: headache TECHNIQUE: Multiple axial images are obtained from the skull base to the vertex without contrast. CT scan was performed according to ALARA (as low as reasonable achievable). COMPARISON: none FINDINGS: Ill defined area of hypodensity in right occipital lobe- could be acute to sub acute infarct in right posterior cerebral artery territory. There is cerebral atrophy. No evidence of space occupying lesion, hemorrhage, edema, mass effect, midline shift, extra axial collection, or hydrocephalus is noted. Basal cisterns are symmetric and normal in size and configuration. There are scattered periventricular hypodensities as can be seen with chronic microvascular ischemic changes. Rest of the coles-white matter differentiation is preserved. Visualized paranasal sinuses and mastoid air cells are well aerated. Orbital contents are within normal limits. Bony structures are intact. IMPRESSION: 1. Ill defined area of hypodensity in right occipital lobe- could be acute to sub acute infarct in right posterior cerebral artery territory. 2. Chronic microvascular ischemic changes. 3. Cerebral atrophy. Adviced MRI brain with contrast for further evaluation to rule out possible underlying space occupying lesions Electronically signed by Max Salazar 06-12-2025 07:14 AM Head CTA 06/12/25 05:25 EXAM: CT angio head w con CLINICAL HISTORY: right BRYSON, vision changes TECHNIQUE: Contrast enhanced thin slice CT angiography scan of the cerebral vessels was performed with intravenous contrast. Contiguous axial images were obtained. Reformatted coronal and sagittal images were also reviewed. If IV contrast material had not been administered, the likelihood of detecting abnormalities relevant to the patient's condition would have been substantially decreased. CT scan was performed according to ALARA (as low as reasonably achievable). COMPARISON: None FINDINGS: Bilateral internal carotid arteries show normal course, caliber and opacification in the canalicular and cavernous part. Their division into the anterior cerebral artery and middle cerebral artery is defined. A1, A2 and M1, M2 segments are normal on both the sides. Bilateral vertebral arteries are seen to unite the form the basilar artery in a normal fashion. Basilar artery shows normal course, caliber and opacification. Its division into the posterior cerebral arteries is defined. Bilateral P1 and P2 segments are normal. Visualized venous structures show normal opacification. No evidence of intracranial aneurysm or AV malformation is seen. IMPRESSION: 1. No evidence of stenosis or aneurysm. No evidence of dissection. Electronically signed by Max Salazar 06-12-2025 07:19 AM Neck CTA 06/12/25 05:25 EXAM: CT angio neck with con CLINICAL HISTORY: right BRYSON, vision changes TECHNIQUE: Contrast enhanced thin slice CT angiography scan of the carotid vessels was performed with intravenous contrast. Contiguous axial images were obtained. Reformatted coronal and sagittal images were also reviewed. If IV contrast material had not been administered, the likelihood of detecting abnormalities relevant to the patient's condition would have been substantially decreased. CT scan was performed according to ALARA (as low as reasonably achievable). COMPARISON: None FINDINGS: Mild, multifocal atherosclerotic calcifications are seen in arch of aorta, bilateral carotid bulbs and clinoid - supraclinoid segments of bilateral internal carotid arteries without causing significant flow limiting stenosis. Common origin of brachiocephalic artery and left common carotid artery - Bovine arch is seen (normal variant). Bilateral vertebral arteries are well opacified. Bilateral jugular veins are well opacified. Included great vessels of the aortic arch are grossly unremarkable. Included lung apices are grossly unremarkable. A few small hypodense nodules are seen in both the lobes of thyroid. Further evaluation with high frequency ultrasound of thyroid suggested. IMPRESSION: 1. No evidence of stenosis or aneurysm. No evidence of dissection. 2. Mild, multifocal atherosclerotic calcifications are seen in arch of aorta, bilateral carotid bulbs and clinoid - supraclinoid segments of bilateral internal carotid arteries without causing significant flow limiting stenosis. 3. A few small hypodense nodules are seen in both the lobes of thyroid. Further evaluation with high frequency ultrasound of thyroid suggested. Electronically signed by Max Salazar 06-12-2025 07:17 AM Thyroid Ultrasound 06/12/25 16:50 Exam(s): US THYROID EXAM: US Soft Tissues Head and Neck, Thyroid CLINICAL HISTORY: Reason for exam: eval thyroid nodules. TECHNIQUE: Real-time ultrasound scan of the thyroid gland and soft tissues of the neck with image documentation. COMPARISON: No relevant prior studies available. FINDINGS: Left thyroid lobe: Left thyroid lobe measures 3.8 x 0.8 x 1.0 cm. No enlarged or calcified nodules. Right thyroid lobe: Right thyroid lobe measures 3.8 x 1.3 x 1.4 cm. Mid right thyroid nodule measuring 1.2 x 1.0 x 0.9 cm. This nodule is solid, isoechoic, wider than tall, has ill-defined margins, and no echogenic foci. Lower pole right thyroid nodule measuring 1.1 x 1.1 x 0.9 cm. This nodule is solid, isoechoic, wider than tall, has smooth margins, and no echogenic foci. Isthmus: Thyroid isthmus measures 0.2 cm. No enlarged or calcified nodules. Lymph nodes: Unremarkable. No lymphadenopathy. IMPRESSION: 1. Mid right thyroid nodule measuring 1.2 x 1.0 x 0.9 cm. This nodule is solid, isoechoic, wider than tall, has ill-defined margins, and no echogenic foci. TI-RADS points: 3. TI-RADS category: TR3. This nodule is mildly suspicious but no FNA or follow-up is necessary given the small size of this nodule. 2. Lower pole right thyroid nodule measuring 1.1 x 1.1 x 0.9 cm. This nodule is solid, isoechoic, wider than tall, has smooth margins, and no echogenic foci. TI-RADS points: 3. TI-RADS category: TR3. This nodule is mildly suspicious but no FNA or follow-up is necessary given the small size of this nodule. Electronically signed by: Froylan Mckeon M.D. 06/12/25 21:34 PM Brain MRI 06/13/25 10:55 MRI of the brain performed with and without IV contrast History: Infarct Comparison: CT on 06/12/2025 Technique: Multiplanar T1 weighted, axial T2/FLAIR, and susceptibility images were obtained without intravenous contrast. Following intravenous gadolinium based contrast administration, axial T2 weighted, diffusion, and T1-weighted images were obtained. Findings: No evidence for intracranial mass lesion, mass-effect, midline shift, or abnormal extra-axial fluid collection. Mild increased patchy enhancement within the medial right occipital lobe related to infarct, otherwise without masslike enhancement. The orbits are grossly unremarkable. The ventricles and sulci are within normal limits for age. Small to moderate area of restricted diffusion within the medial right occipital lobe most compatible with acute infarct. Mild scattered high signal intensity foci in the white matter on T2/FLAIR, is most consistent with chronic small vessel ischemic disease. Normal intravascular flow voids. Impression: An area of restricted diffusion in the medial right occipital lobe, is compatible with an acute infarct. Electronically signed by Tanner Bradley 06-13-2025 4:22 PM Pending Results Patient Have Any Pending Studies at Discharge: No Discharge Instructions Given to Patient (Per Discharging Provider) PLEASE REFER TO YOUR NEW MEDICATION LIST AND FOLLOW INSTRUCTIONS CAREFULLY. YOUR NEW MEDICATIONS INCLUDE: Plavix-antiplatelet for stroke prevention Increase rosuvastatin from 10 mg to 20 mg daily. Doxycycline-antibiotic for Lyme disease Please take a probiotic daily x 2 weeks. Amlodipine-blood pressure medication Stop taking clonidine as you have low heart rates. Drink plenty of fluids. PLEASE CALL YOUR PRIMARY CARE PHYSICIAN OR RETURN TO THE ER IF WITH WORSENING OF SYMPTOMS, INCLUDING Strokelike symptoms as noted below, headache, dizziness, fevers or chills, confusion, weakness, dizziness, fevers or chills, etc. FOLLOW UP WITH PRIMARY CARE PHYSICIAN OUTLINED ABOVE. Follow-up with neurologist in 2 to 3 weeks. Your primary care physician can assist you with scheduling the appointment. Who to Call and When: Medical Emergencies: Call 911 immediately if you experience any of the following warning signs and symptoms of Stroke: Sudden numbness or weakness of the face, arm or leg, especially on one side of the body Sudden confusion, trouble speaking or understanding Sudden trouble seeing in one or both eyes Sudden trouble walking, dizziness, loss of balance or coordination Sudden severe headache with no cause Do not delay calling 911 if you experience any warning signs or symptoms of a stroke. Delay in seeking medical attention may affect what treatments can be given to you. Risk Factors for Stroke: You can reduce your chances of stroke by working with your medical provider to adopt a healthy lifestyle. Some specific ways to lower your chance of stroke are: If you are a smoker, now is the time to stop smoking cigarettes If you are diabetic, improve the control of your blood sugars Avoid excessive amounts of alcohol Control high blood pressure Lose weight if you are overweight Be sure to lead an active lifestyle Eat a healthy diet low in salt, cholesterol and fat You should know about other risk factors for stroke that you are unable to control. These include: Age 55 years or older Male gender Certain racial groups: , or / Family History of Stroke, Mini stroke or Heart Attack Sickle Cell Disease Follow Up: It is important for you to keep your follow up appointments with your medical provider. Total Time Total Time Spent Total Time Spent (In Minutes): 55 minutes
[2025-06-15] MEDS: STROKE PATIENT DISCHARGE STA (15:22)
--- NOTE | 2025-06-16 15:01 | Pharmacy Report ---
Pharmacist Stroke Counseling - Date of Service June 16, 2025 - Scope: Pharmacy has been consulted to provide medication discharge counseling for this patient admitted with [ischemic stroke] [hemorrhagic stroke] [transient ischemic attack] as per the Pharmacist Discharge Counseling for Stroke Patients Tim col. - Medications on Discharge: Home Medications Medication Instructions Recorded Confirmed aspirin 81 mg chewable tablet 81 mg PO DAILY 06/12/25 06/12/25 bisoprolol fumarate 5 mg tablet 5 mg PO DAILY 06/12/25 06/12/25 isosorbide mononitrate 30 mg 30 mg PO DAILY 06/12/25 06/12/25 tablet,extended release 24 hr spironolactone 25 mg tablet 25 mg PO DAILY 06/12/25 06/12/25 New Rx's Medication Instructions Recorded L.acidop,casei,lactis,rham-B.lact,karissa 1 cap PO DAILY 14 days #14 caps 06/15/25 625 mg (10 billion cell) capsule (Advanced Probiotic) amlodipine 5 mg tablet 5 mg PO QAM 30 days #30 tabs 06/15/25 clopidogrel 75 mg tablet 75 mg PO QAM #30 tabs 06/15/25 doxycycline hyclate 100 mg capsule 100 mg PO BID #14 caps 06/15/25 rosuvastatin 20 mg tablet 20 mg PO DAILY 30 days #30 tabs 06/15/25 - Action: The above medications, specifically ones for stroke treatment/prophylaxis, have been reviewed in detail with the patient and/or patient bank representative(s) prior to discharge. This includes indication, common adverse reactions, drug interactions, and medication administration. Medication counseling has been employed using the teach-back method to ensure understanding. - Outcome: The patient and/or patient bank representative(s) have demonstrated understanding of the medications. Additional comments: Patient not available and does not speak [place]. Called and spoke with her granddaughter, Erin who reports she helps her grandmother out with her medications. They report they are going today to pickling operator medications from pharmacy. I did review list of medications with her. She is aware of changes. No questions/concerns at this time. Thank you for allowing pharmacy to be involved in the care of this patient. Please call [phone] with any additional questions
== END 2025-06-15 15:58 | disposition home or self-care (01) | DRG 65 ==
LOC: ED 05:00 → 2W 09:59